=== PATIENT | male | born 1995 | race Caucasian/White ===

== ENCOUNTER 2021-12-30 17:28 | Observation (INO) ==
[2021-12-30] MEDS ORDERED: 0.9 % Sodium Chloride 1,000 ML IVC ONE ×2 (18:23→21:04)
[2021-12-30 19:02] LABS: Amorphous Sediment,Urine Few per hpf (None-Few); Bacteria,Urine Few per hpf (None-Few); Bilirubin,Urine Negative (Negative); Blood,Urine Negative (Negative); Clarity,Urine Turbid (Clear); Color,Urine Light-Yellow (Yellow); Glucose,Urine (UA) Normal (Normal); Granular Casts,Urine Few per lpf (None Seen); Hyaline Casts,Urine Few per lpf (None Seen); Ketones,Urine Negative (Negative); Leukocyte Esterase,Urine Negative (Negative); Mucus,Urine Few per lpf (None-Few); Nitrite,Urine Negative (Negative); PH,Urine 6.5 pH Units (5.0-8.0); Protein,Urine Negative (Neg-Trace); RBC,Urine 0-3 per hpf (0-3); Specific Gravity,Urine 1.017 (1.010-1.025); Urobilinogen,Urine Normal (Normal); WBC,Urine 0-3 per hpf (0-3)
[2021-12-30 19:02] LABS: Basophils % 0.4 %; Eosinophils # 0.2 K/mcL (0.0-0.6); Eosinophils % 1.9 %; Hemoglobin 15.5 g/dL (12.9-16.9); Immature Granulocytes % 0.3 % (0-4); Lymphocytes # 1.4 K/mcL (0.6-4.6); Lymphocytes % 13.9 %; Mean Corpuscular HGB Conc 34.4 g/dL (31.6-35.5); Mean Corpuscular Hemoglobin 29.4 pg (28.0-33.3); Mean Corpuscular Volume 85.4 fL (83.0-100.0); Mean Platelet Volume 9.9 fL (9.4-12.4); Monocytes # 0.6 K/mcL (0.0-1.3); Monocytes % 6.1 %; Neutrophils # 7.6 K/mcL (1.6-8.9); Platelet Count 242 K/mcL (140-400); Red Blood Count 5.27 M/mcL (4.19-5.50); Red Cell Distribution Width 11.9 % (11.5-14.5); Segmented Neutrophils % 77.4 %; White Blood Count 9.8 K/mcL (4.3-11.1)
[2021-12-30] MEDS ORDERED: Iopamidol - 370 500 ML MLS IVP ONE (19:18)
[2021-12-30 19:24] LABS: BUN/Creatinine Ratio 8 (6-26); Blood Urea Nitrogen 8 mg/dL (6-20); Calcium 9.4 mg/dL (8.6-10.3); Carbon Dioxide 29 mEq/L (23-29); Chloride 102 mEq/L (98-107); Glucose 88 mg/dL (70-105); Osmolality,Calculated 284 (280-300); Potassium 3.8 mEq/L (3.5-5.1); Sodium 138 mEq/L (136-145)
[2021-12-30] MEDS ORDERED: Ondansetron 4 MG/2 ML VIAL IVP ONE (19:39)
[2021-12-30] MEDS ORDERED: Ketorolac 30 MG/ML VIAL IVP ONE (19:39)
[2021-12-30] MEDS ORDERED: Piperacillin/Tazobactam 3.375 GM in 0.9 % Sodium Chloride Mini Bag 100 ML IVPB ONE (21:03)
[2021-12-30] MEDS ORDERED: Ondansetron 4 MG/2 ML VIAL IVP PRN (21:38)
[2021-12-31] MEDS: Acetaminophen IV 1,000 MG/100 ML BAG IVPB SCH ×3 (02:58→15:30)
[2021-12-31] MEDS ORDERED: Piperacillin/Tazobactam 3.375 GM in 0.9 % Sodium Chloride Mini Bag 100 ML IVPB SCH (08:00)
[2021-12-31] MEDS ORDERED: *HR* FentaNYL (PF) 100 MCG/2 ML VIAL ONE (08:47)
[2021-12-31] MEDS ORDERED: *HR* Midazolam HCl 2 MG/2 ML VIAL ONE (08:47)
[2021-12-31] MEDS ORDERED: Lidocaine HCL 4 ML Topical Solution (Laryng-O-Jet Kit Sterile Pak) TP ONE (08:48)
[2021-12-31] MEDS ORDERED: Lidocaine -MPF 2% 2 ML VIAL ONE (08:48)
[2021-12-31] MEDS ORDERED: *HR* Rocuronium Bromide 50 MG/5 ML VIAL ONE (08:48)
[2021-12-31] MEDS ORDERED: Ondansetron 4 MG/2 ML VIAL ONE (08:48)
[2021-12-31] MEDS ORDERED: *HR* Propofol 200 MG/20 ML VIAL IVP ONE (08:48)
[2021-12-31] MEDS ORDERED: *HR* HYDROmorphone PF 0.5 MG/0.5 ML SYRINGE IVP PRN (10:17)
[2021-12-31] MEDS ORDERED: Ondansetron 4 MG/2 ML VIAL IVP PRN ×2 (10:17→12:20)
[2021-12-31] MEDS ORDERED: *HR* HYDROMORPHONE 2 MG/ML VIAL ONE (10:23)
[2021-12-31] MEDS ORDERED: *HR* OxyCODONE/APAP 5/325 TABLET PO PRN (12:20)
[2021-12-31] MEDS: Ketorolac 30 MG/ML VIAL IVP SCH ×2 (13:33→17:03)
[2021-12-31] MEDS: Piperacillin/Tazobactam 3.375 GM in 0.9 % Sodium Chloride Mini Bag 100 ML IVPB SCH (17:03)
[2022-01-01] MEDS: Piperacillin/Tazobactam 3.375 GM in 0.9 % Sodium Chloride Mini Bag 100 ML IVPB SCH ×2 (01:10→07:11)
[2022-01-01] MEDS: Ketorolac 30 MG/ML VIAL IVP SCH ×2 (01:10→05:02)
[2022-01-01 03:16] VITALS: TEMP 98
[2022-01-01 03:54] LABS: Basophils % 0.1 %; Hematocrit 40.1 % (37.5-50.1); Immature Granulocytes % 0.4 % (0-4); Lymphocytes # 1.1 K/mcL (0.6-4.6); Lymphocytes % 7.5 %; Mean Corpuscular HGB Conc 33.7 g/dL (31.6-35.5); Mean Corpuscular Volume 86.2 fL (83.0-100.0); Mean Platelet Volume 10.1 fL (9.4-12.4); Monocytes % 6.4 %; Platelet Count 253 K/mcL (140-400); Red Blood Count 4.65 M/mcL (4.19-5.50); Red Cell Distribution Width 11.7 % (11.5-14.5); Segmented Neutrophils % 85.6 %
[2022-01-01 03:55] LABS: Hemoglobin 13.5 g/dL (12.9-16.9); Neutrophils # 12.8 K/mcL (1.6-8.9); White Blood Count 14.9 K/mcL (4.3-11.1)
[2022-01-01 06:50] VITALS: BP 118/61; PULSE 84; O2SAT 97
[2022-01-01] MEDS ORDERED: Ibuprofen 400 MG TABLET PO ONE (09:15)
== END 2022-01-01 11:26 | disposition home or self-care (01) ==
LOC: EMEROOARM 17:28 → 3BNU 17:28
PROVIDERS: ADMIT Surgery; ATTEND Surgery